=== PATIENT | female | born 1990 | race African-American/Black ===

== ENCOUNTER 2019-04-30 09:04 | Emergency (ER) | payer BC ==
[~2019-04-30] VITALS: Ht 175.3 cm; Wt 122.5 kg
[2019-04-30 14:48] VITALS: BP 122/50
== END 2019-04-30 14:48 | disposition home or self-care (01) ==
LOC: ER 09:04
DX: G43.909 Migraine, unspecified, not intractable, without status migrainosus (principal); F17.210 Nicotine dependence, cigarettes, uncomplicated